=== PATIENT | female | born 2005 | race African-American/Black ===

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

== ENCOUNTER 2024-01-01 22:00 | Emergency (ER) | payer BC, MEDICAID ==
[2024-01-01 23:32] LABS: CORONAVIRUS COVID-19 NAA NEGATIVE (NEGATIVE); INFLUENZA A NAA NEGATIVE (NEGATIVE); RESPIRATORY SYNCYTIAL VIR NAA NEGATIVE (NEGATIVE)
[2024-01-01] MEDS: Dexamethasone 6 MG TABLET PO ONE (23:36)
== END 2024-01-01 23:48 | disposition home or self-care (01) ==
LOC: JD.ED 22:00
DX: J06.9 Acute upper respiratory infection, unspecified (principal); Z79.899 Other long term (current) drug therapy
CPT/HCPCS: 0241U; 71046; 87651; 99283; J8540